=== PATIENT | female | born 1940 | race Caucasian/White ===

== ENCOUNTER 2017-03-13 10:27 | Outpatient (CLI) | payer MEDICARE, OTHER | END 2017-03-13 10:30 | LOC: CARD 10:27 | PROVIDERS: ATTEND Internal Medicine Cardiovascular Disease | DX: I48.91 Unspecified atrial fibrillation (principal); I35.0 Nonrheumatic aortic (valve) stenosis; E78.5 Hyperlipidemia, unspecified; I10 Essential (primary) hypertension | CPT/HCPCS: G0463 ==

== ENCOUNTER 2017-07-24 13:28 | Outpatient (CLI) | payer MEDICARE, OTHER | END 2017-07-24 13:40 | LOC: CARD 13:28 | PROVIDERS: ATTEND Internal Medicine Cardiovascular Disease | DX: I35.0 Nonrheumatic aortic (valve) stenosis (principal); I48.91 Unspecified atrial fibrillation; Z95.0 Presence of cardiac pacemaker; E78.5 Hyperlipidemia, unspecified; I10 Essential (primary) hypertension; E03.9 Hypothyroidism, unspecified | CPT/HCPCS: G0463 ==

== ENCOUNTER 2017-10-02 12:15 | Outpatient (CLI) | payer MEDICARE, OTHER ==
--- NOTE | 2017-10-02 16:31 | Diagnostic Imaging Report ---
RAJANI ROJAS [facility] [address] [facility].[address] [id number] Report Submission Date: October 02, 2017 2:44:43 PM CDT Patient Study Name: RONEN ROBLERO Date: October 02, 2017 2:21:15 PM CDT Modality Type: DX Gender: F Description: CHEST : 36 Institution: [facility] Physician: RAJANI ROJAS Examination: PA and lateral chest. History: AORTIC STENOSIS; HYPOTHYROIDISM (Hx) Comparison exam: None provided. Findings: PA lateral chest demonstrates a mildly prominent cardiac and mediastinal silhouette. Chronic interstitial changes. Mild blunting of the right costophrenic margin and posterior sulci. Right-sided cardiac pacemaker. Numerous vertebral body kyphoplasty. Impression: Chronic interstitial changes with possible right base effusion. Electronically signed on October 02, 2017 2:44:43 PM CDT by: Woody OLVERA
== END 2017-10-02 12:16 ==
LOC: CARD 12:15
PROVIDERS: ATTEND Internal Medicine Cardiovascular Disease
DX: I35.0 Nonrheumatic aortic (valve) stenosis (principal); I48.91 Unspecified atrial fibrillation; Z95.0 Presence of cardiac pacemaker; E78.00 Pure hypercholesterolemia, unspecified; I10 Essential (primary) hypertension; E03.9 Hypothyroidism, unspecified
CPT/HCPCS: 36415; 71046; 84443; G0463

== ENCOUNTER 2017-10-30 13:55 | Outpatient (CLI) | payer MEDICARE, OTHER | END 2017-10-30 13:56 | LOC: CARD 13:55 | PROVIDERS: ATTEND Internal Medicine Cardiovascular Disease | DX: I35.0 Nonrheumatic aortic (valve) stenosis (principal); I05.0 Rheumatic mitral stenosis; I48.91 Unspecified atrial fibrillation; I50.9 Heart failure, unspecified; I27.0 Primary pulmonary hypertension; M25.531 Pain in right wrist; Z95.0 Presence of cardiac pacemaker; E78.5 Hyperlipidemia, unspecified; I10 Essential (primary) hypertension; E03.9 Hypothyroidism, unspecified | CPT/HCPCS: G0463 ==